=== PATIENT | male | born 1990 | race Hispanic/Latino ===

== ENCOUNTER 2021-09-13 07:12 | Emergency (ER) | payer OTHER, SELFPAY ==
--- NOTE | ~2021-09-13 | XR_ITS ---
EXAMINATION: XR hand RT min 3V DATE: 09/13/2021 07:40 INDICATION: Right hand caught in conveyor belt. TECHNIQUE: Posteroanterior, oblique and lateral views of the right hand were obtained. COMPARISON: None. FINDINGS: Alignment is normal. No fracture. Joint spaces are normal. Soft tissues are unremarkable. IMPRESSION: 1. Negative right hand radiographs. Reviewed, dictated and finalized at location A.
[2021-09-13 07:22] VITALS: BP 139/109; PULSE 65; RESP 18; TEMP 36.4; O2SAT 100
--- NOTE | 2021-09-13 07:50 | ED.GENADULT ---
HPI - General Adult General Chief complaint: Extremity Injury, Upper Stated complaint: R hand injury/pain Time Seen by Provider: 09/13/21 07:22 Source: patient Mode of arrival: ambulatory Limitations: language barrier History of Present Illness HPI narrative: 31-year-old male presenting to the emergency department for evaluation of a right hand injury. Patient states that approximately 6:00 he had his hand entrapped in a conveyor belt. Patient states his hand was trapped for only a few minutes. Patient states he does have some mild soreness across the dorsum of the hand but does complain of point tenderness at the distal fifth finger. Full range of motion and denies any numbness or weakness. Related Data Allergies Allergy/AdvReac Type Severity Reaction Status Date / Time No Known Allergies Allergy Verified 09/13/21 07:57 Review of Systems Review of Systems: CONSTITUTIONAL: Denies fever, chills, or sweats. MUSCULOSKELETAL: See HPI NEUROLOGIC: Denies headache, numbness, or weakness. Translating computer was utilized. Exam Narrative: APPEARANCE: Well appearing, no pain, no distress, well-nourished. HEAD: normocephalic, atraumatic. EYES: PERRLA/EOMI, conjunctivae clear. NOSE: Normal no drainage MUSCULOSKELETAL: Moves all extremities. Normal range of motion of right hand. Sensation intact. No point tenderness over hand other than DIP. Normal pulses and strong cap refill. NEURO: Alert. Cranial nerves II through XII intact. Neurologically intact SKIN: Warm, dry. Normal Color. No laceration Course Course Emergency Course: Patient was updated on the results of the x-ray (no acute fracture or dislocation) And treatment plan from. Patient was encouraged with close follow-up with his primary care physician. All questions and concerns were addressed. Vital Signs Vital signs: Vital Signs Temperature 97.6 F 09/13/21 07:22 Pulse Rate 65 09/13/21 07:22 Respiratory Rate 18 09/13/21 07:22 Blood Pressure 139/109 H 09/13/21 07:22 Pulse Oximetry 100 09/13/21 07:22 Temperature 97.6 F 09/13/21 07:22 Pulse Rate 65 09/13/21 07:22 Respiratory Rate 18 09/13/21 07:22 Blood Pressure 139/109 H 09/13/21 07:22 Pulse Oximetry 100 09/13/21 07:22 Medical Decision Making Vital Signs Vital Signs: Vital Signs Temperature 97.6 F 09/13/21 07:22 Pulse Rate 65 09/13/21 07:22 Respiratory Rate 18 09/13/21 07:22 Blood Pressure 139/109 H 09/13/21 07:22 Pulse Oximetry 100 09/13/21 07:22 Temperature 97.6 F 09/13/21 07:22 Pulse Rate 65 09/13/21 07:22 Respiratory Rate 18 09/13/21 07:22 Blood Pressure 139/109 H 09/13/21 07:22 Pulse Oximetry 100 09/13/21 07:22 Imaging Data Radiologist's impression: Impressions Hand X-Ray 09/13/21 07:48 IMPRESSION: 1. Negative right hand radiographs. Discharge Plan Discharge Clinical Impression: Contusion of hand Qualifiers: Encounter type: initial encounter Laterality: right Qualified Code(s): S60.221A - Contusion of right hand, initial encounter Patient Disposition: Home, Self-Care Condition: Stable Instructions: Antibiotic Form, Contusion in Adults (ED) Additional Instructions: Tylenol and ibuprofen for pain control. Ice intermittently as directed. Have close follow-up with your primary care physician. If you have any worsening symptoms then please call or return to the emergency department. Follow-up/Referrals: PHYSICIAN NOT ON STAFF,NONSTAFF [Non-Staff] - Stand Alone Forms: Work/School Release IP
== END 2021-09-13 08:24 | disposition home or self-care (01) ==
PROVIDERS: Emergency Provider Emergency Medicine
DX: S60.221A Contusion of right hand, initial encounter (principal); W31.89XA Contact with other specified machinery, initial encounter
CPT/HCPCS: 73130; 99283